=== PATIENT | male | born 1945 | race Caucasian/White ===

== ENCOUNTER 2021-11-21 11:47 | Observation (INO) ==
[2021-11-21 14:13] LABS: Bilirubin,Urine Negative (Negative); Blood,Urine Negative (Negative); Clarity,Urine Clear (Clear); Color,Urine Light-Yellow (Yellow); Glucose,Urine (UA) Normal (Normal); Ketones,Urine Negative (Negative); Leukocyte Esterase,Urine Negative (Negative); Nitrite,Urine Negative (Negative); Protein,Urine Trace mg/dL (Neg-Trace); Specific Gravity,Urine 1.024 (1.010-1.025); Urobilinogen,Urine Normal (Normal)
[2021-11-21] MEDS ORDERED: Ondansetron 4 MG/2 ML VIAL IVP PRN ×2 (14:51→17:14)
[2021-11-21] MEDS ORDERED: Morphine Sulfate 2 MG/ML SYRINGE IVP ONE (14:51)
[2021-11-21] MEDS ORDERED: 0.9 % Sodium Chloride 500 ML IV ONE (14:51)
[2021-11-21 15:33] LABS: Basophils % 0.5 %; Eosinophils # 0.2 K/mcL (0.0-0.6); Eosinophils % 2.5 %; Hematocrit 34.4 % (37.5-50.1); Hemoglobin 11.6 g/dL (12.9-16.9); Immature Granulocytes % 0.3 % (0-4); Lymphocytes # 0.9 K/mcL (0.6-4.6); Mean Corpuscular HGB Conc 33.7 g/dL (31.6-35.5); Mean Corpuscular Hemoglobin 33.6 pg (28.0-33.3); Mean Corpuscular Volume 99.7 fL (83.0-100.0); Mean Platelet Volume 9.5 fL (9.4-12.4); Monocytes # 0.6 K/mcL (0.0-1.3); Neutrophils # 4.7 K/mcL (1.6-8.9); Platelet Count 143 K/mcL (140-400); Red Blood Count 3.45 M/mcL (4.19-5.50); Red Cell Distribution Width 12.2 % (11.5-14.5); Segmented Neutrophils % 73.7 %; White Blood Count 6.4 K/mcL (4.3-11.1)
[2021-11-21 15:52] LABS: Albumin 3.8 g/dL (3.5-5.7); Albumin/Globulin Ratio 1.3 (1.1-2.2); Bilirubin,Direct 0.1 mg/dL (0.0-0.2); Bilirubin,Indirect 0.4 mg/dL (0.0-1.0); Bilirubin,Total 0.5 mg/dL (0.3-1.0); Calcium 9.3 mg/dL (8.6-10.3); Potassium 5.2 mEq/L (3.5-5.1); Total Protein 6.8 g/dL (6.4-8.9)
[2021-11-21] MEDS ORDERED: Naloxone 0.4 MG/ML INJ IVP PRN (17:14)
[2021-11-21] MEDS ORDERED: *HR* HYDROcodone/Acet 5/325 mg TABLET PO PRN (17:16)
[2021-11-21] MEDS ORDERED: Dextrose Gel 15 GM/37.5 ML TUBE PO PRN ×2 (17:17)
[2021-11-21] MEDS ORDERED: *HR* Dextrose 50 % in Water (Syg) 50 ML SYRINGE IVP PRN (17:17)
[2021-11-21] MEDS ORDERED: D5% in Water 1,000 ML IVC PRN (17:17)
[2021-11-21] MEDS ORDERED: Morphine Sulfate 2 MG/ML SYRINGE IVP PRN (17:45)
[2021-11-21] MEDS: 0.9 % Sodium Chloride 1,000 ML IVC SCH (19:41)
[2021-11-21] MEDS: *HR* Heparin 5,000 UNIT/ML VIAL SQ SCH (19:43)
[2021-11-21] MEDS ORDERED: Insulin LISPRO 300 UNITS/3 ML VIAL SUBQ SCH (21:00)
[2021-11-22 01:34] LABS: Basophils % 0.4 %; Eosinophils # 0.2 K/mcL (0.0-0.6); Eosinophils % 3.3 %; Hematocrit 29.9 % (37.5-50.1); Immature Granulocytes % 0.2 % (0-4); Mean Corpuscular HGB Conc 33.4 g/dL (31.6-35.5); Mean Corpuscular Volume 101.7 fL (83.0-100.0); Mean Platelet Volume 9.3 fL (9.4-12.4); Monocytes # 0.5 K/mcL (0.0-1.3); Monocytes % 9.6 %; Neutrophils # 3.4 K/mcL (1.6-8.9); Platelet Count 120 K/mcL (140-400); Red Blood Count 2.94 M/mcL (4.19-5.50); Red Cell Distribution Width 12.3 % (11.5-14.5); Segmented Neutrophils % 66.5 %; White Blood Count 5.1 K/mcL (4.3-11.1)
[2021-11-22 01:55] LABS: Calcium 8.4 mg/dL (8.6-10.3); Magnesium 1.5 mg/dL (1.6-2.6); Phosphorous 2.7 mg/dL (2.7-4.5); Potassium 4.9 mEq/L (3.5-5.1)
[2021-11-22] MEDS: 0.9 % Sodium Chloride 1,000 ML IVC SCH ×2 (05:20→13:03)
[2021-11-22] MEDS: *HR* Heparin 5,000 UNIT/ML VIAL SQ SCH ×2 (05:20→17:17)
[2021-11-22] MEDS: Insulin LISPRO 300 UNITS/3 ML VIAL SUBQ SCH ×3 (07:21→16:33)
[2021-11-22] MEDS ORDERED: Aspirin Enteric Coated 81 MG Tablet PO SCH ×2 (09:00)
[2021-11-22] MEDS ORDERED: Lidocaine -MPF 2% 5 ML VIAL ONE (09:19)
[2021-11-22] MEDS ORDERED: Ondansetron 4 MG/2 ML VIAL ONE (09:19)
[2021-11-22] MEDS ORDERED: *HR* FentaNYL (PF) 100 MCG/2 ML VIAL ONE (09:20)
[2021-11-22] MEDS ORDERED: *HR* Propofol 200 MG/20 ML VIAL IVP ONE (09:20)
[2021-11-22] MEDS ORDERED: Famotidine 20 MG/2 ML VIAL IVP ONE (09:24)
[2021-11-22] MEDS ORDERED: Acetaminophen IV 1,000 MG/100 ML BAG IVPB ONE ×2 (09:24→09:32)
[2021-11-22] MEDS ORDERED: Famotidine 20 MG/2 ML VIAL ONE (09:33)
[2021-11-22] MEDS ORDERED: CeFAZolin Syr 2,000MG/20 ML 2,000 MG/20 ML SYRINGE IVPB ONE (10:15)
[2021-11-22] MEDS ORDERED: Lidocaine HCL 4 ML Topical Solution (Laryng-O-Jet Kit Sterile Pak) TP ONE (10:29)
[2021-11-22] MEDS ORDERED: Lidocaine 1% 20 ML MDV ONE (11:05)
[2021-11-22] MEDS ORDERED: Lidocaine Jelly 11 ml Syringe ONE (11:05)
[2021-11-22] MEDS ORDERED: EPHEDrine 50 MG/ML VIAL ONE (11:23)
[2021-11-22] MEDS ORDERED: Iopamidol - 300 50 ML VIAL ONE (11:23)
[2021-11-22] MEDS ORDERED: Naloxone 0.4 MG/ML INJ IVP PRN (12:50)
[2021-11-22] MEDS ORDERED: *HR* Dextrose 50 % in Water (Syg) 50 ML SYRINGE IVP PRN (12:50)
[2021-11-22] MEDS ORDERED: Dextrose Gel 15 GM/37.5 ML TUBE PO PRN ×2 (12:50)
[2021-11-22] MEDS ORDERED: Ondansetron 4 MG/2 ML VIAL IVP PRN (12:50)
[2021-11-22] MEDS ORDERED: Melatonin 3 MG TABLET PO PRN (12:50)
[2021-11-22] MEDS ORDERED: D5% in Water 1,000 ML IVC PRN (12:50)
[2021-11-22] MEDS ORDERED: *HR* HYDROcodone/Acet 5/325 mg TABLET PO PRN (12:50)
[2021-11-22] MEDS ORDERED: Morphine Sulfate 2 MG/ML SYRINGE IVP PRN (12:50)
[2021-11-22] MEDS ORDERED: *HR* Metformin 500 MG TABLET PO SCH ×2 (17:00)
[2021-11-22] MEDS ORDERED: Mirtazapine 15 MG TABLET PO SCH ×2 (21:00)
[2021-11-22] MEDS ORDERED: Insulin LISPRO 300 UNITS/3 ML VIAL SUBQ SCH (21:00)
[2021-11-23] MEDS: 0.9 % Sodium Chloride 1,000 ML IVC SCH ×2 (02:42→11:55)
[2021-11-23] MEDS: *HR* Heparin 5,000 UNIT/ML VIAL SQ SCH (05:10)
[2021-11-23 05:43] VITALS: PULSE 72
[2021-11-23 05:49] LABS: Basophils % 0.6 %; Eosinophils # 0.2 K/mcL (0.0-0.6); Eosinophils % 3.2 %; Hematocrit 30.3 % (37.5-50.1); Hemoglobin 9.9 g/dL (12.9-16.9); Immature Granulocytes % 0.4 % (0-4); Lymphocytes # 0.8 K/mcL (0.6-4.6); Lymphocytes % 15.9 %; Mean Corpuscular HGB Conc 32.7 g/dL (31.6-35.5); Mean Corpuscular Hemoglobin 33.6 pg (28.0-33.3); Mean Corpuscular Volume 102.7 fL (83.0-100.0); Mean Platelet Volume 9.4 fL (9.4-12.4); Monocytes # 0.4 K/mcL (0.0-1.3); Monocytes % 7.1 %; Neutrophils # 3.6 K/mcL (1.6-8.9); Platelet Count 122 K/mcL (140-400); Red Blood Count 2.95 M/mcL (4.19-5.50); Red Cell Distribution Width 12.1 % (11.5-14.5); Segmented Neutrophils % 72.8 %
[2021-11-23 06:41] LABS: Magnesium 1.9 mg/dL (1.6-2.6); Potassium 4.7 mEq/L (3.5-5.1)
[2021-11-23 07:46] VITALS: O2SAT 93
[2021-11-23] MEDS: Insulin LISPRO 300 UNITS/3 ML VIAL SUBQ SCH ×2 (08:36→11:55)
[2021-11-23] MEDS ORDERED: Cholecalciferol (D-3) 1,000 UNIT (25MCG) TABLET PO SCH (09:00)
[2021-11-23] MEDS ORDERED: Ascorbic Acid 500 MG TABLET PO SCH (09:00)
[2021-11-23] MEDS ORDERED: Loratadine 10 MG TABLET PO SCH (09:00)
[2021-11-23] MEDS ORDERED: GlipiZIDE 5 MG TABLET PO SCH (09:00)
[2021-11-23] MEDS ORDERED: Aspirin Enteric Coated 81 MG Tablet PO SCH (09:00)
[2021-11-23 11:27] VITALS: BP 157/74; TEMP 98.1
== END 2021-11-23 14:35 | disposition home or self-care (01) ==
LOC: 3ANU 11:47 → EMEROOARM 11:47 → 3ANU 18:26
PROVIDERS: ADMIT General Practice; ATTEND General Practice